=== PATIENT | male | born 1990 | race African-American/Black ===

== ENCOUNTER → 2016-07-28 | Outpatient (CLI) | payer OTHER ==
[~2016-07-28] MED LIST: IOHEXOL 350 MG/ML 10 ML VIAL (for RAD DIAG) IV ONE; NITROGLYCERIN 0.4 MG SL 25 TABS/BTL SL ONE
[2016-07-28 12:05] VITALS: BP 134/77; PULSE 65
[2016-07-28 12:21] VITALS: BP 132/70; PULSE 68
--- NOTE | 2016-07-28 15:11 | RADRPT ---
EXAM DATE/TIME: 07/28/2016 11:36 [place] COMPARISON: No previous studies available for comparison. INDICATIONS : Abnormal EKG IV CONTRAST: 90 cc Omnipaque 350 (iohexol) IV RADIATION DOSE: 7.60 CTDIvol (mGy) MEDICAL HISTORY : None SURGICAL HISTORY : None. ENCOUNTER: Initial ACUITY: 1 day PAIN SCALE: 0/10 LOCATION: chest TECHNIQUE: Volumetric scanning was obtained through the heart. Images were acquired on a multislice multiple ro w detector helical scanner timed for acquisition during peak arterial contrast. Images were reconstr ucted using a retrospective gating algorithm including single sector and multi-sector algorithms at m ultiple phases of the cardiac cycle. Images were interpreted using a combination of 2D and 3D visual ization modes including curved planar reformation, thin slab maximum intensity projection and volume rendering. Using automated exposure control and adjustment of the mA and/or kV according to patient size, radiation dose was kept as low as reasonably achievable to obtain optimal diagnostic quality im ages. FINDINGS: calcium score: 0 VESSEL ANALYSIS: DOMINANCE: The coronary system is right dominant. LEFT MAIN: Normal vessel without calcification or stenosis. LAD: Normal vessel without calcification or stenosis. CIRCUMFLEX: Normal vessel without calcification or stenosis. RCA: Normal vessel without calcification or stenosis. OTHER: None. CONCLUSION: 1. Normal examination. Caleb Haynes MD on July 28, 2016 at 14:44 Board Certified Radiologist. This report was verified electronically.
== END ==
LOC: HRAD 09:55
DX: R94.31 Abnormal electrocardiogram [ECG] [EKG] (principal)
CPT/HCPCS: 75574; Q9967